=== PATIENT | female | born 1955 | race Caucasian/White ===

== ENCOUNTER 2020-08-19 05:27 | Day surgery (SDC) | payer MEDICAID ==
[2020-08-12 12:13] LABS: BASOPHILS # (AUTO) 0.1 X10'3 (0-0.2); BASOPHILS % (AUTO) 0.8 % (0-1); EOSINOPHILS # (AUTO) 0.4 X10'3 (0-0.9); EOSINOPHILS % (AUTO) 4.9 % (0-6); LYMPHOCYTES # (AUTO) 1.9 X10'3 (1.1-4.8); LYMPHOCYTES % (AUTO) 24.1 % (21-51); MEAN CORPUSCULAR HEMOGLOBIN 31.3 PG (27.0-31.0); MEAN CORPUSCULAR HGB CONC 34.5 g/dL (33.0-36.5); MEAN CORPUSCULAR VOLUME 90.7 FL (78-98); MEAN PLATELET VOLUME 8.1 FL (7.4-10.4); MONOCYTES # (AUTO) 0.6 X10'3 (0-0.9); NEUTROPHILS % (AUTO) 63.2 % (42-75); PRE OP HEMATOCRIT 39.7 % (35.0-45.0); PRE OP HEMOGLOBIN 13.7 g/dL (12.0-16.0); PRE OP PLATELET COUNT 192 X10'3 (140-440); RED BLOOD COUNT 4.38 X10'6 (4.20-5.60); RED CELL DISTRIBUTION WIDTH 13.4 % (11.5-14.5)
[2020-08-12 12:28] LABS: ALBUMIN 3.1 G/DL (3.4-5.0); ALBUMIN/GLOBULIN RATIO 0.8 (1.1-1.5); ALKALINE PHOSPHATASE 175 IU/L (46-116); BLOOD UREA NITROGEN 15 MG/DL (7-18); BUN/CREATININE RATIO 22.1 (6.6-38.0); CALCIUM 8.3 MG/DL (8.5-10.1); CHLORIDE 104 MMOL/L (99-107); CREATININE 0.68 MG/DL (0.40-0.90); PRE OP ALT 46 U/L (30-65); PRE OP ANION GAP 12 (8-16); PRE OP AST 70 U/L (10-37); PRE OP BILIRUB, TOTAL 1.2 MG/DL (0.0-1.0); PRE OP GLUCOSE 126 MG/DL (70-104); PRE OP POTASSIUM 3.5 MMOL/L (3.4-5.1); PRE OP SODIUM 140 MMOL/L (135-145); TOTAL CARBON DIOXIDE 24.2 MMOL/L (24-32); eGFR 87 ML/MIN
[2020-08-19] VITALS (8 sets, daily range): BP systolic 139–171; BP diastolic 78–99
[~2020-08-19] VITALS: Ht 162.6 cm; Wt 124.6 kg
[~2020-08-19 05:27] MED LIST: AMLO5TAB16 PO; CHOL20002 PO; ENAL20TA36 PO; HYDR-3972 PO; IBUP-1985 PO; MAGN400T52 PO; MECL-159 PO; VITA-268 PO; ringers solution, lacted 1,000 ML IV SCH
[2020-08-19] MEDS ORDERED: vancomycin 1,500 MG in NS 300ml IV soln IV ONE (05:30)
[2020-08-19] MEDS ORDERED: famotidine 20mg tablet PO ONE (05:30)
[2020-08-19] MEDS ORDERED: ceFAZolin inj. 3,000 MG in normal saline 100ml IV soln 100 ML IV ONE (05:30)
[2020-08-19] MEDS ORDERED: triamcinolone acetonide 40mg/ml inj ONE (06:35)
[2020-08-19] MEDS ORDERED: BUPIVAcaine/PF 2.5 mg/ml (0.25%) 30ml vial ONE (06:35)
[2020-08-19] MEDS ORDERED: sevoflurane 250ml liquid IH ONE (07:15)
[2020-08-19] MEDS ORDERED: fentaNYL/PF 50MCG/1 ML 2ML syringe ONE (07:22)
[2020-08-19] MEDS ORDERED: LIDOcaine 2% 5ml jelly ONE (07:25)
[2020-08-19] MEDS ORDERED: midazolam 1 mg/ML 2ml injection ONE (07:25)
[2020-08-19] MEDS ORDERED: acetaminophen 1,000mg/100ml IV 100 ML IV PRN (07:35)
[2020-08-19] MEDS ORDERED: labetalol 20mg/4ml (5mg/ml) syringe IV PRN (07:35)
[2020-08-19] MEDS ORDERED: morphine 2 MG/ML inj. syringe IV PRN (07:35)
[2020-08-19] MEDS ORDERED: hydrALAZINE 20mg/ml inj. IV PRN (07:35)
[2020-08-19] MEDS ORDERED: ringers solution, lacted 1,000 ML IV SCH (07:35)
[2020-08-19] MEDS ORDERED: morphine 4 MG/ML inj SYRINge IV PRN (07:35)
[2020-08-19] MEDS ORDERED: ondansetron/PF 4mg/2ml inj IV PRN (07:35)
[2020-08-19] MEDS ORDERED: proCHLORperazine 10 MG/2 ml inj IV PRN (07:35)
[2020-08-19] MEDS ORDERED: meperidine/PF 25mg/ml syringe IV PRN ×3 (07:35)
[2020-08-19] MEDS ORDERED: rocuronium 10mg/ml inj IV ONE (07:44)
[2020-08-19] MEDS ORDERED: LIDOcaine 2% (20mg/ml) 5ml vial ONE (07:44)
[2020-08-19] MEDS ORDERED: ondansetron/PF 4mg/2ml inj ONE (07:44)
[2020-08-19] MEDS ORDERED: propofol inj 20 ML IV ONE (07:44)
[2020-08-19] MEDS ORDERED: dexamethasone sod phosphate 4mg/ml inj. ONE (07:44)
[2020-08-19] MEDS ORDERED: glycopyrrolate 0.2mg/ml inj ONE (08:35)
[2020-08-19] MEDS ORDERED: neostigmine methylsulfate 1 MG/ML 10ml vial ONE (08:35)
--- NOTE | 2020-08-19 08:47 | NUR ---
Received from OR via [facility] , accompanied by Anesthesiologist JANIE and report given by Anesthesiolgist. PATIENT WITH 20G PIV IN RIGHT UE RUNNING LR AT 100. DENIES PAIN. MEDICATED FOR NAUSEA UPON ARRIVAL. RIGHT KNEE WITH MEIR WRAP PRESENT THAT IS CDI. Addendum: 08/19/20 at 0857 by Naresh Camilo RN, RN Amended: Links added.
--- NOTE | 2020-08-19 10:05 | NUR ---
PATIENT SENT HOME VIA MEDICAL TRANSPORT. ABLE TO TRANSFER SELF FROM GURNEY TO WHEELCHAIR AND TO VEHICLE FROM THE CHAIR WITH USE OF PERSONAL SINGLE POINT CANE. WBAT. VSS. IV OUT, PATIENT ENCOURAGED TO ELEVATE ANKLE ABOVE KNEE AND KNEE ABOVE HEART. PATIENT AGREES TO COMPLY, Addendum: 08/19/20 at 1008 by Naresh Camilo RN, RN Amended: Links added.
== END 2020-08-19 09:57 | disposition home or self-care (01) ==
LOC: PAS 05:27
PROVIDERS: ATTEND Orthopaedic Surgery
DX: S83.231A Complex tear of medial meniscus, current injury, right knee, initial encounter (principal); S83.271A Complex tear of lateral meniscus, current injury, right knee, initial encounter; M94.261 Chondromalacia, right knee; J45.909 Unspecified asthma, uncomplicated; G89.4 Chronic pain syndrome; I10 Essential (primary) hypertension; E66.01 Morbid (severe) obesity due to excess calories; Z68.42 Body mass index [BMI] 45.0-49.9, adult; M17.0 Bilateral primary osteoarthritis of knee; Z96.642 Presence of left artificial hip joint; Z88.5 Allergy status to narcotic agent; Z88.8 Allergy status to other drugs, medicaments and biological substances; Z88.0 Allergy status to penicillin; Z79.899 Other long term (current) drug therapy; Z20.822 Contact with and (suspected) exposure to COVID-19; X58.XXXA Exposure to other specified factors, initial encounter; Y93.89 Activity, other specified; Y92.89 Other specified places as the place of occurrence of the external cause; Y99.8 Other external cause status
CPT/HCPCS: 29873; 29879; 29880; 36415; 80053; 82948; 85025; 93005; J0690; J1100; J2001; J2250; J2405; J2704; J2710; J3010; J3301; J3370; J3490; J7040; U0003; U0005; A4215; A4618; A6250; A6449; A7000; J7120